=== PATIENT | female | born 1985 | race Caucasian/White ===

== ENCOUNTER 2018-08-01 18:12 | Emergency (ER) | payer OTHER ==
[2018-08-01] MEDS: KETOROLAC 60 MG INJ IM (22:55)
== END 2018-08-02 00:13 | disposition home or self-care (01) ==
LOC: FTE 08-02 00:13
DX: S99.911A Unspecified injury of right ankle, initial encounter (principal); E66.9 Obesity, unspecified; X50.1XXA Overexertion from prolonged static or awkward postures, initial encounter; Y92.9 Unspecified place or not applicable; Z68.32 Body mass index [BMI] 32.0-32.9, adult
CPT/HCPCS: 73590; 73610-RT; 73630; 81025; 96372; 99284-25